=== PATIENT | male | born 1955 | race Caucasian/White ===

== ENCOUNTER 2020-01-02 19:36 | Observation (INO) ==
[2020-01-02 21:03] LABS: Basophils # 0.1 10*3/uL (0.0-0.2); Basophils % 0.7 % (0.0-0.8); Eosinophils # 0.3 10*3/uL (0.0-0.87); Hematocrit 39.8 VOL% (42.0-52.0); Hemoglobin 13.8 GM/DL (14.0-18.0); Immature Granulocytes % 0.2 %; Immature Granulocytes Absolute 0.02 #; Lymphocytes # 3.3 10*3/uL (1.4-4.0); Lymphocytes % 38.8 % (21.2-54.2); Mean Corpuscular HGB Conc 34.7 GM/DL (32-36); Mean Corpuscular Volume 100.8 FL (87-102); Mean Platelet Volume 10.2 FL (9.6-12.0); Monocytes % 15.4 % (1.7-12.7); Neutrophils % 40.9 % (38.7-73.9); Platelet Count 249 T/CUMM (130-400); Red Blood Count 3.95 MC/CUMM (3.8-5.5); Red Cell Distribution Width 13.1 % (9.3-17.3); White Blood Count 8.6 T/CUMM (4-12)
[2020-01-02] MEDS ORDERED: SODIUM CHLORIDE 0.9% 500 ML IV STA (21:13)
[2020-01-02] MEDS ORDERED: ALBUTEROL/IPRATROPIUM 3 ML NEB RESP TX STA (21:13)
[2020-01-02] MEDS ORDERED: methylPREDNISolone SOD SUC 125 MG/2 ML VIAL IV STA (21:13)
[2020-01-02 21:23] LABS: Alanine Aminotransferase 24 U/L (16-61); Albumin 3.2 G/DL (3.4-5.0); Alkaline Phosphatase 73 U/L (45-117); Aspartate Amino Transferase 11 U/L (0-37); Bilirubin,Total < 0.39 MG/DL (0.2-1.0); Blood Urea Nitrogen 6 MG/DL (7-18); Estimated Glom Filtration Rate 78 ML/MIN; Glucose 97 MG/DL (74-106); Osmolality,Calculated 267.1 MOS/KG (273-304); Total Protein 6.7 G/DL (6.4-8.3); Troponin I < 0.015 NG/ML (0.00-0.045)
[2020-01-02 21:35] LABS: PT Patient Result 10.3 SECS (9.8-11.9)
[2020-01-02 23:22] LABS: Apearance,Urine CLEAR (Clear); Bilirubin,Urine Negative (Negative); Blood, Urine Negative (Negative); Glucose,Urine (UA) Negative (Negative); Ketones,Urine Negative (Negative); Nitrite,Urine Negative (Negative); Protein,Urine Negative; Urine Color Yellow (Yellow); Urine Specific Gravity 1.004 (1.001-1.035); Urine Urobilinogen < 2.0 EU/DL (0.2-1.0); WBC,Urine <1 /HPF (0-6)
[2020-01-02] MEDS ORDERED: GLUCAGON 1 MG VIAL IM PRN (23:25)
[2020-01-02] MEDS ORDERED: ACETAMINOPHEN 325 MG TABLET PO PRN (23:25)
[2020-01-02] MEDS ORDERED: NICOTINE 21 MG/24 HR PATCH TRANSDERM PRN (23:25)
[2020-01-02] MEDS ORDERED: MORPHINE 4 MG/1 ML VIAL IV PRN (23:25)
[2020-01-02] MEDS ORDERED: guaiFENesin/DM ER 600-30 MG TABLET PO PRN (23:25)
[2020-01-02] MEDS ORDERED: DEXTROSE 50% 25 GM/50 ML VIAL IV PRN (23:25)
[2020-01-02] MEDS ORDERED: hydrALAZINE 20 MG/1 ML VIAL IV PRN (23:25)
[2020-01-02] MEDS ORDERED: ZALEPLON 5 MG CAPSULE PO PRN (23:25)
[2020-01-02] MEDS ORDERED: ONDANSETRON 4 MG/2 ML VIAL IV PRN (23:25)
[2020-01-02] MEDS ORDERED: diphenhydrAMINE CAP 25 MG CAPSULE PO PRN (23:25)
[2020-01-02 23:47] LABS: Barbiturates Screen,Urine Negative (Negative); Benzodiazepines Screen,Urine Negative (Negative); Cannabinoid Screen,Urine Negative (Negative); Opiate Screen,Urine Negative (Negative); Phencyclidine Screen,Urine Negative (Negative)
[2020-01-03 06:38] LABS: Basophils % 0.4 % (0.0-0.8); Hematocrit 40.8 VOL% (42.0-52.0); Hemoglobin 13.8 GM/DL (14.0-18.0); Immature Granulocytes % 0.2 %; Immature Granulocytes Absolute 0.01 #; Lymphocytes # 0.8 10*3/uL (1.4-4.0); Lymphocytes % 14.2 % (21.2-54.2); Mean Corpuscular HGB Conc 33.8 GM/DL (32-36); Mean Platelet Volume 10.9 FL (9.6-12.0); Monocytes % 1.5 % (1.7-12.7); Neutrophils % 83.7 % (38.7-73.9); Platelet Count 248 T/CUMM (130-400); Red Blood Count 4.08 MC/CUMM (3.8-5.5); White Blood Count 5.5 T/CUMM (4-12)
[2020-01-03] MEDS: ALBUTEROL/IPRATROPIUM 3 ML NEB RESP TX SCH ×3 (06:44→14:46)
[2020-01-03 06:49] LABS: ABG Base Excess -2.3 MMOL/L (-2.5-2.5); ABG HCO3 20.6 MMOL/L (20-26); ABG Oxygen Saturation 97.1 % (95-100); ABG PCO2 30.4 MM HG (35-48); ABG PH 7.448 (7.35-7.45); ABG PO2 87.5 MM HG (80-95); ABG TCO2 21.5 MMOL/L (23-27)
[2020-01-03 07:10] LABS: Albumin 3.1 G/DL (3.4-5.0); Bilirubin,Total 0.6 MG/DL (0.2-1.0); Osmolality,Calculated 272.1 MOS/KG (273-304); Thyroid Stimulating Hormone 0.306 uIU/ml (0.358-3.74); Total Protein 6.8 G/DL (6.4-8.3)
[2020-01-03] MEDS ORDERED: PANTOPRAZOLE 40 MG TABLET PO SCH (09:00)
[2020-01-03] MEDS ORDERED: ENOXAPARIN 40 MG/0.4 ML SYRINGE SUBCUT SCH (09:00)
[2020-01-03] MEDS ORDERED: ASPIRIN EC 325 MG TABLET PO SCH (12:30)
[2020-01-03 16:04] VITALS: BP 129/78
[2020-01-05] MEDS ORDERED: PNEUMOCOCCAL VACCINE (23 VALENT) 0.5 ML VIAL IM ONE (05:05)
== END 2020-01-03 16:33 | disposition home or self-care (01) ==
LOC: N.ED 19:36 → N.EDINP 19:36 → SUATTDRO 23:25 → N.TELEN 01-03 02:27
PROVIDERS: ADMIT Internal Medicine; ATTEND Hospitalist

== ENCOUNTER 2021-12-15 11:05 | Inpatient (IN) ==
[2021-12-15] MEDS ORDERED: DILTIAZEM 25 MG/5 ML VIAL IV ONE (11:21)
[2021-12-15] MEDS ORDERED: DILTIAZEM 100 MG VIAL.ADD IV ONE (11:21)
[2021-12-15] MEDS ORDERED: ADENOSINE 6 MG/2 ML VIAL ONE (11:34)
[2021-12-15] MEDS ORDERED: ADENOSINE 6 MG/2 ML VIAL IV STA (11:35)
[2021-12-15] MEDS ORDERED: DILTIAZEM 25 MG/5 ML VIAL IV STA (11:37)
[2021-12-15 12:00] LABS: Basophils # 0.1 10*3/uL (0.0-0.2); Basophils % 0.7 % (0.0-0.8); Eosinophils # 0.1 10*3/uL (0.0-0.87); Eosinophils % 1.4 % (0.00-10.9); Immature Granulocytes % 0.4 %; Immature Granulocytes Absolute 0.04 #; Lymphocytes # 1.7 10*3/uL (1.4-4.0); Lymphocytes % 18.1 % (21.2-54.2); Mean Corpuscular HGB Conc 32.6 GM/DL (32-36); Mean Corpuscular Volume 103.6 FL (87-102); Mean Platelet Volume 12.8 FL (9.6-12.0); Monocytes # 1.1 10*3/uL (0.11-0.8); Monocytes % 11.7 % (1.7-12.7); Neutrophils % 67.7 % (38.7-73.9); Platelet Count 242 T/CUMM (130-400); Red Blood Count 4.44 MC/CUMM (3.8-5.5); White Blood Count 9.3 T/CUMM (4-12)
[2021-12-15 12:15] LABS: Alanine Aminotransferase 57 U/L (16-61); Albumin 3.6 G/DL (3.4-5.0); Alkaline Phosphatase 123 U/L (45-117); Aspartate Amino Transferase 44 U/L (0-37); Blood Urea Nitrogen 14 MG/DL (7-18); Calcium 9.6 MG/DL (8.5-10.1); Carbon Dioxide 25 MMOL/L (21-32); Chloride 106 MMOL/L (98-107); Glucose 115 MG/DL (74-106); Osmolality,Calculated 274.8 MOS/KG (273-304); Potassium 5.1 MMOL/L (3.5-5.1); Sodium 137 MMOL/L (136-145); Total Protein 7.5 G/DL (6.4-8.2)
[2021-12-15] MEDS ORDERED: METOPROLOL TARTRATE 5 MG/5 ML VIAL IV ONE ×2 (13:40→13:46)
[2021-12-15] MEDS ORDERED: METOPROLOL TARTRATE 5 MG/5 ML VIAL IV STA ×3 (13:40→14:00)
[2021-12-15] MEDS ORDERED: GLUCAGON 1 MG VIAL IM PRN (15:04)
[2021-12-15] MEDS ORDERED: DEXTROSE 10% 250 ML BAG IV PRN (15:04)
[2021-12-15] MEDS ORDERED: ONDANSETRON 4 MG/2 ML VIAL IV PRN (15:04)
[2021-12-15] MEDS ORDERED: ACETAMINOPHEN 325 MG TABLET PO PRN (15:04)
[2021-12-15] MEDS ORDERED: FUROSEMIDE 40 MG/4 ML VIAL IV STA (15:09)
[2021-12-15] MEDS ORDERED: METOPROLOL TARTRATE 25 MG TABLET PO STA (15:10)
[2021-12-15] MEDS ORDERED: ASPIRIN EC 325 MG TABLET PO STA (15:14)
[2021-12-15 15:15] LABS: Arterial Base Excess iSTAT -5 MMOL/L (-2.5-2.5); Arterial O2 Saturation iSTAT 91 % (95-100); Arterial PCO2 iSTAT 37 MM HG (35-48); Arterial PO2 iSTAT 64 MM HG (80-95); Arterial Total CO2 iSTAT 21 MMO/L (23-27); Arterial pH iSTAT 7.343 (7.35-7.45)
[2021-12-15] MEDS ORDERED: ENOXAPARIN 40 MG/0.4 ML SYRINGE SUBCUT STA (15:16)
[2021-12-15] MEDS ORDERED: ALBUTEROL 2.5 MG/3 ML NEB RESP TX PRN (15:18)
[2021-12-15] MEDS ORDERED: ENOXAPARIN 150 MG/ML SYRINGE SUBCUT STA (15:18)
[2021-12-15] MEDS ORDERED: LORazepam 1 MG TABLET PO PRN (15:23)
[2021-12-15] MEDS ORDERED: NICOTINE 7 MG/24 HR PATCH TRANSDERM PRN (15:40)
[2021-12-15] MEDS ORDERED: DIAZEPAM 5 MG TABLET PO STA (15:57)
[2021-12-15] MEDS ORDERED: MORPHINE 2 MG/1 ML SYRINGE ONE (15:59)
[2021-12-15] MEDS ORDERED: MORPHINE 2 MG/1 ML SYRINGE IV ONE (16:02)
[2021-12-15] MEDS ORDERED: LACTATED RINGERS 250 ML IV ONE (16:13)
[2021-12-15] MEDS ORDERED: DIAZEPAM 10 MG/2 ML SYRINGE IM STA (16:35)
[2021-12-15] MEDS ORDERED: DIAZEPAM 5 MG TABLET PO PRN (17:13)
[2021-12-15] MEDS: PANTOPRAZOLE 40 MG VIAL IV SCH ×2 (17:20→20:14)
[2021-12-15] MEDS ORDERED: PHENYLEPHRINE DRIP 40 MG/250 ML PREMIX IV PRN (19:02)
[2021-12-15] MEDS: FLUTICASONE/SALMETEROL 250-50 DISKUS 14 DOSE INH SCH (20:12)
[2021-12-15] MEDS: GABAPENTIN 300 MG CAPSULE PO SCH (20:13)
[2021-12-15] MEDS: ASCORBIC ACID 500 MG TABLET PO SCH (20:13)
[2021-12-15] MEDS: FOLIC ACID 1 MG TABLET PO SCH (20:13)
[2021-12-15] MEDS: THIAMINE 100 MG TABLET PO SCH (20:13)
[2021-12-15] MEDS: CYANOCOBALAMIN 500 MCG TABLET PO SCH (20:13)
[2021-12-15] MEDS: FUROSEMIDE 40 MG/4 ML VIAL IV SCH (20:14)
[2021-12-15] MEDS ORDERED: METOPROLOL TARTRATE 25 MG TABLET PO SCH (21:00)
[2021-12-16] MEDS ORDERED: METOPROLOL TARTRATE 5 MG/5 ML VIAL IV ONE ×3 (01:11→11:58)
[2021-12-16] MEDS: ENOXAPARIN 150 MG/ML SYRINGE SUBCUT SCH ×2 (03:09→16:09)
[2021-12-16 06:26] LABS: Basophils # 0.1 10*3/uL (0.0-0.2); Basophils % 0.5 % (0.0-0.8); Eosinophils # 0.1 10*3/uL (0.0-0.87); Eosinophils % 0.8 % (0.00-10.9); Hematocrit 41.2 VOL% (42.0-52.0); Hemoglobin 13.6 GM/DL (14.0-18.0); Immature Granulocytes % 0.5 %; Immature Granulocytes Absolute 0.05 #; Lymphocytes # 1.9 10*3/uL (1.4-4.0); Lymphocytes % 19.3 % (21.2-54.2); Mean Corpuscular Volume 102.2 FL (87-102); Mean Platelet Volume 12.8 FL (9.6-12.0); Monocytes # 1.3 10*3/uL (0.11-0.8); Monocytes % 13.3 % (1.7-12.7); NRBC # 0.03 10*3/uL; Neutrophils % 65.6 % (38.7-73.9); Platelet Count 227 T/CUMM (130-400); Red Blood Count 4.03 MC/CUMM (3.8-5.5); Red Cell Distribution Width 15.1 % (9.3-17.3); White Blood Count 9.6 T/CUMM (4-12)
[2021-12-16 06:50] LABS: Risk Ratio 3.32; VLDL Cholesterol 14.6 MG/DL
[2021-12-16 06:56] LABS: Calcium 8.8 MG/DL (8.5-10.1); Osmolality,Calculated 273.1 MOS/KG (273-304); Potassium 4.6 MMOL/L (3.5-5.1)
[2021-12-16 07:05] LABS: Albumin 3.1 G/DL (3.4-5.0); Bilirubin,Total 1.5 MG/DL (0.20-1.00); Calcium 8.8 MG/DL (8.5-10.1); Potassium 5.1 MMOL/L (3.5-5.1); Total Protein 6.4 G/DL (6.4-8.2)
[2021-12-16] MEDS ORDERED: AMIODARONE INJ 150 MG in DEXTROSE 5% 100 ML IV ONE ×2 (08:06→09:00)
[2021-12-16 08:27] LABS: Risk Ratio 3.27; VLDL Cholesterol 14.2 MG/DL
[2021-12-16] MEDS ORDERED: AMIODARONE INJ 450 MG in DEXTROSE 5% 241 ML IV SCH (08:30)
[2021-12-16] MEDS ORDERED: METOPROLOL TARTRATE 25 MG TABLET PO SCH (09:00)
[2021-12-16] MEDS: FUROSEMIDE 40 MG/4 ML VIAL IV SCH ×2 (09:03→20:23)
[2021-12-16] MEDS: ASPIRIN EC 81 MG TABLET PO SCH (09:03)
[2021-12-16] MEDS: FOLIC ACID 1 MG TABLET PO SCH ×2 (09:03→20:22)
[2021-12-16] MEDS: GABAPENTIN 300 MG CAPSULE PO SCH ×3 (09:04→20:22)
[2021-12-16] MEDS: PANTOPRAZOLE 40 MG VIAL IV SCH ×2 (09:04→20:23)
[2021-12-16] MEDS: THIAMINE 100 MG TABLET PO SCH ×2 (09:04→20:22)
[2021-12-16] MEDS: CYANOCOBALAMIN 500 MCG TABLET PO SCH ×2 (09:05→20:22)
[2021-12-16] MEDS: oxyCODONE/ACETAMINOPHEN 5-325 MG TABLET PO PRN (09:05)
[2021-12-16] MEDS: ASCORBIC ACID 500 MG TABLET PO SCH ×2 (09:05→20:22)
[2021-12-16] MEDS ORDERED: MORPHINE 2 MG/1 ML SYRINGE ONE (09:43)
[2021-12-16] MEDS: MORPHINE 2 MG/1 ML SYRINGE IV PRN ×2 (09:50→12:42)
[2021-12-16] MEDS ORDERED: METOPROLOL TARTRATE 5 MG/5 ML VIAL IV SCH (12:00)
[2021-12-16] MEDS ORDERED: DIGOXIN 0.5 MG/2 ML AMP IV ONE ×2 (12:21→12:30)
[2021-12-16] MEDS ORDERED: DIAZEPAM 10 MG/2 ML SYRINGE IV ONE (12:28)
[2021-12-16] MEDS ORDERED: DIAZEPAM 10 MG/2 ML SYRINGE ONE (12:30)
[2021-12-16] MEDS ORDERED: ALUM/MAG/SIMETH/LIDO VISC 1:1 30 ML BOTTLE PO ONE (13:18)
[2021-12-16] MEDS: FLUTICASONE/SALMETEROL 250-50 DISKUS 14 DOSE INH SCH ×2 (13:39→20:22)
[2021-12-16] MEDS: DIAZEPAM 5 MG TABLET PO SCH ×2 (16:12→20:22)
[2021-12-16] MEDS: AMIODARONE INJ 450 MG in DEXTROSE 5% 241 ML IV SCH (17:50)
[2021-12-16] MEDS: carvediloL 3.125 MG TABLET PO SCH (18:52)
[2021-12-16 19:27] LABS: Barbiturates Screen,Urine Negative (Negative); Benzodiazepines Screen,Urine Negative (Negative); Cannabinoid Screen,Urine Negative (Negative); Opiate Screen,Urine Positive (Negative); Phencyclidine Screen,Urine Negative (Negative)
[2021-12-17 01:19] LABS: Basophils # 0.1 10*3/uL (0.0-0.2); Basophils % 0.9 % (0.0-0.8); Eosinophils # 0.4 10*3/uL (0.0-0.87); Eosinophils % 2.7 % (0.00-10.9); Hematocrit 43.4 VOL% (42.0-52.0); Hemoglobin 13.9 GM/DL (14.0-18.0); Immature Granulocytes % 0.5 %; Immature Granulocytes Absolute 0.06 #; Lymphocytes # 2.3 10*3/uL (1.4-4.0); Lymphocytes % 18.3 % (21.2-54.2); Mean Corpuscular Volume 104.6 FL (87-102); Mean Platelet Volume 12.1 FL (9.6-12.0); Monocytes # 2.2 10*3/uL (0.11-0.8); NRBC # 0.08 10*3/uL; Neutrophils % 60.6 % (38.7-73.9); Platelet Count 227 T/CUMM (130-400); Red Blood Count 4.15 MC/CUMM (3.8-5.5); Red Cell Distribution Width 15.1 % (9.3-17.3); White Blood Count 12.8 T/CUMM (4-12)
[2021-12-17 01:40] LABS: Eosinophils 4 % (0-10); Lymphocytes 17 % (20-55); Macrocytosis 1+; Platelet Estimate Adequate; Total Cells Counted 100
[2021-12-17 01:43] LABS: Calcium 8.4 MG/DL (8.5-10.1); Osmolality,Calculated 270.4 MOS/KG (273-304); Potassium 3.8 MMOL/L (3.5-5.1)
[2021-12-17] MEDS: AMIODARONE INJ 450 MG in DEXTROSE 5% 241 ML IV SCH ×2 (04:08→05:23)
[2021-12-17] MEDS: ENOXAPARIN 150 MG/ML SYRINGE SUBCUT SCH ×2 (04:08→15:08)
[2021-12-17] MEDS: FUROSEMIDE 40 MG/4 ML VIAL IV SCH ×2 (09:39→20:06)
[2021-12-17] MEDS: PANTOPRAZOLE 40 MG VIAL IV SCH ×2 (09:39→20:05)
[2021-12-17] MEDS: FLUTICASONE/SALMETEROL 250-50 DISKUS 14 DOSE INH SCH ×2 (09:39→20:04)
[2021-12-17] MEDS ORDERED: EPINEPHrine 1 MG/ML VIAL ONE (10:51)
[2021-12-17] MEDS ORDERED: propofoL 200 MG/20 ML VIAL IV ONE (10:52)
[2021-12-17] MEDS ORDERED: LIDOCAINE 1% 5 ML VIAL ONE (10:53)
[2021-12-17] MEDS ORDERED: ETOMIDATE 40 MG/20 ML VIAL IV ONE (10:53)
[2021-12-17] MEDS: DAPAGLIFLOZIN 10 MG TABLET PO SCH (11:31)
[2021-12-17] MEDS: ASCORBIC ACID 500 MG TABLET PO SCH ×2 (11:32→20:04)
[2021-12-17] MEDS: GABAPENTIN 300 MG CAPSULE PO SCH ×3 (11:32→20:04)
[2021-12-17] MEDS: FOLIC ACID 1 MG TABLET PO SCH ×2 (11:32→20:05)
[2021-12-17] MEDS: carvediloL 3.125 MG TABLET PO SCH ×2 (11:32→20:05)
[2021-12-17] MEDS: AMIODARONE 200 MG TABLET PO SCH ×2 (11:33→20:04)
[2021-12-17] MEDS: ASPIRIN EC 81 MG TABLET PO SCH (11:33)
[2021-12-17] MEDS: CYANOCOBALAMIN 500 MCG TABLET PO SCH ×2 (11:33→20:05)
[2021-12-17] MEDS: THIAMINE 100 MG TABLET PO SCH ×2 (11:33→20:06)
[2021-12-17] MEDS: DIAZEPAM 5 MG TABLET PO SCH ×3 (11:34→20:05)
[2021-12-18] MEDS: ENOXAPARIN 150 MG/ML SYRINGE SUBCUT SCH ×2 (03:37→14:47)
[2021-12-18 03:56] LABS: Basophils # 0.1 10*3/uL (0.0-0.2); Basophils % 0.8 % (0.0-0.8); Eosinophils # 0.4 10*3/uL (0.0-0.87); Eosinophils % 4.8 % (0.00-10.9); Hematocrit 42.1 VOL% (42.0-52.0); Hemoglobin 13.8 GM/DL (14.0-18.0); Immature Granulocytes % 0.3 %; Immature Granulocytes Absolute 0.02 #; Lymphocytes # 1.4 10*3/uL (1.4-4.0); Lymphocytes % 18.9 % (21.2-54.2); Mean Corpuscular HGB Conc 32.8 GM/DL (32-36); Mean Corpuscular Volume 101.9 FL (87-102); Mean Platelet Volume 11.9 FL (9.6-12.0); Monocytes # 1.1 10*3/uL (0.11-0.8); Monocytes % 15.5 % (1.7-12.7); NRBC # 0.05 10*3/uL; Neutrophils % 59.7 % (38.7-73.9); Platelet Count 261 T/CUMM (130-400); Red Blood Count 4.13 MC/CUMM (3.8-5.5); Red Cell Distribution Width 14.9 % (9.3-17.3); White Blood Count 7.4 T/CUMM (4-12)
[2021-12-18 04:18] LABS: Albumin 2.8 G/DL (3.4-5.0); Bilirubin,Direct 0.47 MG/DL (0.0-0.20); Bilirubin,Indirect 0.4 MG/DL (0.0-1.0); Bilirubin,Total 0.9 MG/DL (0.20-1.00); Calcium 8.5 MG/DL (8.5-10.1); Osmolality,Calculated 274.8 MOS/KG (273-304); Total Protein 6.9 G/DL (6.4-8.2)
[2021-12-18] MEDS: ASPIRIN EC 81 MG TABLET PO SCH (09:09)
[2021-12-18] MEDS: ASCORBIC ACID 500 MG TABLET PO SCH ×2 (09:09→20:05)
[2021-12-18] MEDS: CYANOCOBALAMIN 500 MCG TABLET PO SCH ×2 (09:10→20:05)
[2021-12-18] MEDS: FOLIC ACID 1 MG TABLET PO SCH ×2 (09:10→20:05)
[2021-12-18] MEDS: AMIODARONE 200 MG TABLET PO SCH ×2 (09:10→20:05)
[2021-12-18] MEDS: POTASSIUM CHLORIDE 20 MEQ TABLET PO PRN ×5 (09:11→22:30)
[2021-12-18] MEDS: DIAZEPAM 5 MG TABLET PO SCH ×3 (09:11→20:04)
[2021-12-18] MEDS: carvediloL 3.125 MG TABLET PO SCH ×2 (09:11→17:26)
[2021-12-18] MEDS: DAPAGLIFLOZIN 10 MG TABLET PO SCH (09:12)
[2021-12-18] MEDS: THIAMINE 100 MG TABLET PO SCH ×2 (09:12→20:05)
[2021-12-18] MEDS: FLUTICASONE/SALMETEROL 250-50 DISKUS 14 DOSE INH SCH ×2 (09:14→20:04)
[2021-12-18] MEDS: GABAPENTIN 300 MG CAPSULE PO SCH ×3 (09:14→20:04)
[2021-12-18] MEDS: FUROSEMIDE 40 MG/4 ML VIAL IV SCH ×2 (09:14→20:03)
[2021-12-18 09:16] LABS: Hepatitis B Core IgM Quant 0.25 Index; Hepatitis B Surface Ag Quant < 0.10 Index; Hepatitis B Surface Ag Result Non-Reactive (NonReactive); Hepatitis C Virus Ab Quant 0.03 Index; Hepatitis C Virus Ab Result Non-Reactive (NonReactive)
[2021-12-18] MEDS: oxyCODONE/ACETAMINOPHEN 5-325 MG TABLET PO PRN (17:26)
[2021-12-18] MEDS ORDERED: PANTOPRAZOLE 40 MG TABLET PO SCH (19:00)
[2021-12-18] MEDS: MORPHINE 2 MG/1 ML SYRINGE IV PRN (20:04)
[2021-12-18] MEDS: METOPROLOL TARTRATE 5 MG/5 ML VIAL IV PRN (21:54)
[2021-12-19] MEDS: ENOXAPARIN 150 MG/ML SYRINGE SUBCUT SCH ×2 (03:43→15:48)
[2021-12-19] MEDS: METOPROLOL TARTRATE 5 MG/5 ML VIAL IV PRN ×3 (03:46→23:12)
[2021-12-19 05:30] LABS: Basophils # 0.1 10*3/uL (0.0-0.2); Basophils % 0.8 % (0.0-0.8); Eosinophils # 0.3 10*3/uL (0.0-0.87); Eosinophils % 4.2 % (0.00-10.9); Hematocrit 43.3 VOL% (42.0-52.0); Hemoglobin 13.8 GM/DL (14.0-18.0); Immature Granulocytes % 0.4 %; Immature Granulocytes Absolute 0.03 #; Lymphocytes # 1.6 10*3/uL (1.4-4.0); Lymphocytes % 21.1 % (21.2-54.2); Mean Corpuscular HGB Conc 31.9 GM/DL (32-36); Mean Corpuscular Volume 104.1 FL (87-102); Mean Platelet Volume 12.5 FL (9.6-12.0); Monocytes # 1.3 10*3/uL (0.11-0.8); Monocytes % 18.1 % (1.7-12.7); Neutrophils % 55.4 % (38.7-73.9); Platelet Count 255 T/CUMM (130-400); Red Blood Count 4.16 MC/CUMM (3.8-5.5); Red Cell Distribution Width 15.4 % (9.3-17.3); White Blood Count 7.4 T/CUMM (4-12)
[2021-12-19 05:54] LABS: Calcium 8.6 MG/DL (8.5-10.1); Osmolality,Calculated 276.5 MOS/KG (273-304); Potassium 3.6 MMOL/L (3.5-5.1)
[2021-12-19] MEDS: POTASSIUM CHLORIDE 20 MEQ TABLET PO PRN (06:50)
[2021-12-19 07:42] LABS: Eosinophils 6 % (0-10); Lymphocytes 25 % (20-55); Nucleated Red Blood Cells 1 /100 WBC (0-5); Total Cells Counted 100
[2021-12-19 07:43] LABS: Macrocytosis Slight; Platelet Estimate Normal
[2021-12-19] MEDS: PANTOPRAZOLE 40 MG TABLET PO SCH ×2 (08:12→21:46)
[2021-12-19] MEDS: CYANOCOBALAMIN 500 MCG TABLET PO SCH ×2 (08:12→21:46)
[2021-12-19] MEDS: DIAZEPAM 5 MG TABLET PO SCH ×3 (08:12→21:46)
[2021-12-19] MEDS: GABAPENTIN 300 MG CAPSULE PO SCH ×3 (08:12→21:46)
[2021-12-19] MEDS: DAPAGLIFLOZIN 10 MG TABLET PO SCH (08:12)
[2021-12-19] MEDS: ASCORBIC ACID 500 MG TABLET PO SCH ×2 (08:12→21:46)
[2021-12-19] MEDS: FLUTICASONE/SALMETEROL 250-50 DISKUS 14 DOSE INH SCH ×2 (08:13→21:45)
[2021-12-19] MEDS: FOLIC ACID 1 MG TABLET PO SCH ×2 (08:13→21:47)
[2021-12-19] MEDS: AMIODARONE 200 MG TABLET PO SCH ×2 (08:13→21:46)
[2021-12-19] MEDS: carvediloL 3.125 MG TABLET PO SCH ×2 (08:13→17:24)
[2021-12-19] MEDS: THIAMINE 100 MG TABLET PO SCH ×2 (08:13→21:46)
[2021-12-19] MEDS: ASPIRIN EC 81 MG TABLET PO SCH (08:15)
[2021-12-19] MEDS: FUROSEMIDE 40 MG/4 ML VIAL IV SCH ×2 (08:15→21:47)
[2021-12-19] MEDS: ALBUTEROL/IPRATROPIUM 3 ML NEB RESP TX SCH ×2 (13:32→19:10)
[2021-12-19] MEDS: ALUM/MAG/SIMETH/LIDO VISC 1:1 30 ML BOTTLE PO SCH (15:48)
[2021-12-19] MEDS: predniSONE 20 MG TABLET PO SCH ×2 (15:48→21:47)
[2021-12-19] MEDS ORDERED: FUROSEMIDE 20 MG/2 ML VIAL IV ONE (17:58)
[2021-12-19] MEDS: DOXYCYCLINE HYCLATE 100 MG CAPSULE PO SCH (21:47)
[2021-12-19] MEDS: oxyCODONE/ACETAMINOPHEN 5-325 MG TABLET PO PRN (21:51)
[2021-12-20] MEDS: ALBUTEROL/IPRATROPIUM 3 ML NEB RESP TX SCH ×4 (00:10→19:35)
[2021-12-20] MEDS: ENOXAPARIN 150 MG/ML SYRINGE SUBCUT SCH (02:47)
[2021-12-20 05:26] LABS: Basophils % 0.1 % (0.0-0.8); Hematocrit 41.8 VOL% (42.0-52.0); Hemoglobin 13.4 GM/DL (14.0-18.0); Immature Granulocytes % 0.4 %; Immature Granulocytes Absolute 0.03 #; Lymphocytes # 0.7 10*3/uL (1.4-4.0); Lymphocytes % 8.2 % (21.2-54.2); Mean Corpuscular HGB Conc 32.1 GM/DL (32-36); Mean Corpuscular Volume 103.7 FL (87-102); Mean Platelet Volume 11.9 FL (9.6-12.0); Monocytes % 11.8 % (1.7-12.7); Neutrophils % 79.5 % (38.7-73.9); Platelet Count 257 T/CUMM (130-400); Red Blood Count 4.03 MC/CUMM (3.8-5.5); Red Cell Distribution Width 15.2 % (9.3-17.3); White Blood Count 8.2 T/CUMM (4-12)
[2021-12-20 05:44] LABS: Calcium 8.7 MG/DL (8.5-10.1); Osmolality,Calculated 284.1 MOS/KG (273-304); Potassium 3.9 MMOL/L (3.5-5.1)
[2021-12-20] MEDS: DAPAGLIFLOZIN 10 MG TABLET PO SCH (08:33)
[2021-12-20] MEDS: ASCORBIC ACID 500 MG TABLET PO SCH ×2 (08:34→22:09)
[2021-12-20] MEDS: FOLIC ACID 1 MG TABLET PO SCH ×2 (08:34→22:11)
[2021-12-20] MEDS: ASPIRIN EC 81 MG TABLET PO SCH (08:34)
[2021-12-20] MEDS: carvediloL 3.125 MG TABLET PO SCH (08:35)
[2021-12-20] MEDS: CYANOCOBALAMIN 500 MCG TABLET PO SCH ×2 (08:35→22:10)
[2021-12-20] MEDS: THIAMINE 100 MG TABLET PO SCH ×2 (08:35→22:10)
[2021-12-20] MEDS: AMIODARONE 200 MG TABLET PO SCH ×2 (08:35→22:09)
[2021-12-20] MEDS: PANTOPRAZOLE 40 MG TABLET PO SCH ×2 (08:35→22:11)
[2021-12-20] MEDS: DOXYCYCLINE HYCLATE 100 MG CAPSULE PO SCH ×2 (08:35→22:10)
[2021-12-20] MEDS: ALUM/MAG/SIMETH/LIDO VISC 1:1 30 ML BOTTLE PO SCH (08:36)
[2021-12-20] MEDS: GABAPENTIN 300 MG CAPSULE PO SCH ×3 (08:36→22:09)
[2021-12-20] MEDS: DIAZEPAM 5 MG TABLET PO SCH ×3 (08:36→22:11)
[2021-12-20] MEDS: predniSONE 20 MG TABLET PO SCH ×2 (08:36→22:11)
[2021-12-20] MEDS: FUROSEMIDE 40 MG/4 ML VIAL IV SCH ×2 (08:37→22:11)
[2021-12-20] MEDS: FLUTICASONE/SALMETEROL 250-50 DISKUS 14 DOSE INH SCH ×2 (08:37→22:12)
[2021-12-20] MEDS: POTASSIUM CHLORIDE 20 MEQ TABLET PO PRN (10:21)
[2021-12-20] MEDS: oxyCODONE/ACETAMINOPHEN 5-325 MG TABLET PO PRN ×2 (10:22→22:10)
[2021-12-20] MEDS: METOPROLOL TARTRATE 5 MG/5 ML VIAL IV PRN (12:09)
[2021-12-20] MEDS: carvediloL 12.5 MG TABLET PO SCH (16:33)
[2021-12-20] MEDS: ROSUVASTATIN 10 MG TABLET PO SCH (22:09)
[2021-12-20] MEDS: APIXABAN 5 MG TABLET PO SCH (22:11)
[2021-12-21] MEDS: ALBUTEROL/IPRATROPIUM 3 ML NEB RESP TX SCH ×4 (00:23→19:10)
[2021-12-21] MEDS: METOPROLOL TARTRATE 5 MG/5 ML VIAL IV PRN (07:36)
[2021-12-21] MEDS ORDERED: DIGOXIN 0.5 MG/2 ML AMP IV ONE ×2 (08:23→17:10)
[2021-12-21] MEDS: ALUM/MAG/SIMETH/LIDO VISC 1:1 30 ML BOTTLE PO SCH (08:51)
[2021-12-21] MEDS: FLUTICASONE/SALMETEROL 250-50 DISKUS 14 DOSE INH SCH ×2 (08:53→21:00)
[2021-12-21] MEDS: AMIODARONE 200 MG TABLET PO SCH ×2 (08:54→20:59)
[2021-12-21] MEDS: CYANOCOBALAMIN 500 MCG TABLET PO SCH ×2 (08:54→21:00)
[2021-12-21] MEDS: DAPAGLIFLOZIN 10 MG TABLET PO SCH (08:54)
[2021-12-21] MEDS: PANTOPRAZOLE 40 MG TABLET PO SCH ×2 (08:54→21:00)
[2021-12-21] MEDS: ASCORBIC ACID 500 MG TABLET PO SCH ×2 (08:54→20:59)
[2021-12-21] MEDS: APIXABAN 5 MG TABLET PO SCH (08:54)
[2021-12-21] MEDS: carvediloL 25 MG TABLET PO SCH ×2 (08:55→20:59)
[2021-12-21] MEDS: predniSONE 20 MG TABLET PO SCH ×2 (08:55→20:59)
[2021-12-21] MEDS: FUROSEMIDE 40 MG/4 ML VIAL IV SCH ×2 (08:55→21:00)
[2021-12-21] MEDS: FOLIC ACID 1 MG TABLET PO SCH ×2 (08:55→20:59)
[2021-12-21] MEDS: GABAPENTIN 300 MG CAPSULE PO SCH ×3 (08:55→21:00)
[2021-12-21] MEDS: ASPIRIN EC 81 MG TABLET PO SCH (08:55)
[2021-12-21] MEDS: THIAMINE 100 MG TABLET PO SCH ×2 (08:56→20:59)
[2021-12-21] MEDS: DOXYCYCLINE HYCLATE 100 MG CAPSULE PO SCH ×2 (08:56→20:59)
[2021-12-21] MEDS: DIAZEPAM 5 MG TABLET PO SCH ×3 (08:56→20:59)
[2021-12-21] MEDS ORDERED: LOSARTAN 25 MG TABLET PO SCH (09:00)
[2021-12-21 09:15] LABS: Calcium 9.2 MG/DL (8.5-10.1); Osmolality,Calculated 273.1 MOS/KG (273-304); Potassium 4.4 MMOL/L (3.5-5.1)
[2021-12-21] MEDS: carvediloL 12.5 MG TABLET PO SCH (09:33)
[2021-12-21] MEDS ORDERED: METOPROLOL TARTRATE 5 MG/5 ML VIAL IV ONE (09:44)
[2021-12-21] MEDS ORDERED: BISACODYL 5 MG TABLET PO ONE (09:56)
[2021-12-21] MEDS ORDERED: BISACODYL 5 MG TABLET PO PRN (13:55)
[2021-12-21] MEDS: POLYETHYLENE GLYCOL POWDER 17 GM PACK PO SCH (14:08)
[2021-12-21] MEDS: CETIRIZINE 10 MG TABLET PO SCH (18:25)
[2021-12-21] MEDS: ROSUVASTATIN 10 MG TABLET PO SCH (21:00)
[2021-12-21] MEDS: MORPHINE 2 MG/1 ML SYRINGE IV PRN (21:09)
[2021-12-22] MEDS: ALBUTEROL/IPRATROPIUM 3 ML NEB RESP TX SCH ×4 (00:58→19:03)
[2021-12-22 05:27] LABS: Basophils % 0.1 % (0.0-0.8); Eosinophils % 0.3 % (0.00-10.9); Hematocrit 40.7 VOL% (42.0-52.0); Immature Granulocytes % 0.4 %; Immature Granulocytes Absolute 0.04 #; Lymphocytes % 10.5 % (21.2-54.2); Mean Corpuscular HGB Conc 31.9 GM/DL (32-36); Mean Corpuscular Volume 103.8 FL (87-102); Mean Platelet Volume 11.9 FL (9.6-12.0); Monocytes # 1.3 10*3/uL (0.11-0.8); Monocytes % 13.2 % (1.7-12.7); Neutrophils % 75.5 % (38.7-73.9); Platelet Count 270 T/CUMM (130-400); Red Blood Count 3.92 MC/CUMM (3.8-5.5); Red Cell Distribution Width 15.3 % (9.3-17.3); White Blood Count 9.7 T/CUMM (4-12)
[2021-12-22 05:50] LABS: Albumin 2.8 G/DL (3.4-5.0); Bilirubin,Direct 0.25 MG/DL (0.0-0.20); Bilirubin,Indirect 0.3 MG/DL (0.0-1.0); Bilirubin,Total 0.5 MG/DL (0.20-1.00); Calcium 8.8 MG/DL (8.5-10.1); Osmolality,Calculated 285.3 MOS/KG (273-304); Potassium 3.5 MMOL/L (3.5-5.1); Total Protein 6.6 G/DL (6.4-8.2)
[2021-12-22] MEDS: AMIODARONE 200 MG TABLET PO SCH ×2 (09:52→21:49)
[2021-12-22] MEDS: ALUM/MAG/SIMETH/LIDO VISC 1:1 30 ML BOTTLE PO SCH (09:52)
[2021-12-22] MEDS: carvediloL 25 MG TABLET PO SCH ×2 (09:52→21:50)
[2021-12-22] MEDS: ASPIRIN EC 81 MG TABLET PO SCH (09:52)
[2021-12-22] MEDS: FLUTICASONE/SALMETEROL 250-50 DISKUS 14 DOSE INH SCH ×2 (09:52→21:50)
[2021-12-22] MEDS: FOLIC ACID 1 MG TABLET PO SCH ×2 (09:53→21:50)
[2021-12-22] MEDS: POLYETHYLENE GLYCOL POWDER 17 GM PACK PO SCH (09:53)
[2021-12-22] MEDS: SACUBITRIL/VALSARTAN 49-51 MG TABLET PO SCH ×2 (09:53→21:49)
[2021-12-22] MEDS: PANTOPRAZOLE 40 MG TABLET PO SCH ×2 (09:53→21:49)
[2021-12-22] MEDS: THIAMINE 100 MG TABLET PO SCH ×2 (09:53→21:50)
[2021-12-22] MEDS: predniSONE 20 MG TABLET PO SCH ×2 (09:53→21:49)
[2021-12-22] MEDS: DOXYCYCLINE HYCLATE 100 MG CAPSULE PO SCH ×2 (09:53→21:49)
[2021-12-22] MEDS: FUROSEMIDE 40 MG/4 ML VIAL IV SCH ×2 (09:53→21:50)
[2021-12-22] MEDS: DAPAGLIFLOZIN 10 MG TABLET PO SCH (09:53)
[2021-12-22] MEDS: GABAPENTIN 300 MG CAPSULE PO SCH ×3 (09:53→21:49)
[2021-12-22] MEDS: CYANOCOBALAMIN 500 MCG TABLET PO SCH ×2 (09:53→21:49)
[2021-12-22] MEDS: DIAZEPAM 5 MG TABLET PO SCH ×3 (09:53→21:49)
[2021-12-22] MEDS: ASCORBIC ACID 500 MG TABLET PO SCH ×2 (09:54→21:50)
[2021-12-22] MEDS ORDERED: DIGOXIN 0.5 MG/2 ML AMP IV ONE (12:27)
[2021-12-22] MEDS ORDERED: POTASSIUM CHLORIDE RIDER 10 MEQ/100 ML PREMIX IV PRN (12:28)
[2021-12-22] MEDS ORDERED: MAGNESIUM SULF RIDER 2 GM/50 ML PREMIX IV PRN (12:28)
[2021-12-22] MEDS ORDERED: POTASSIUM CHLORIDE 20 MEQ TABLET PO ONE (13:53)
[2021-12-22] MEDS: DILTIAZEM 30 MG TABLET PO SCH ×2 (13:53→17:59)
[2021-12-22] MEDS ORDERED: DIGOXIN 0.125 MG TABLET PO ONE (13:54)
[2021-12-22] MEDS ORDERED: BENZONATATE 100 MG CAPSULE PO PRN (13:56)
[2021-12-22] MEDS ORDERED: BENZONATATE 100 MG CAPSULE PO ONE (13:56)
[2021-12-22] MEDS: ROSUVASTATIN 20 MG TABLET PO SCH (21:50)
[2021-12-22] MEDS: CETIRIZINE 10 MG TABLET PO SCH (21:50)
[2021-12-23] MEDS: DILTIAZEM 30 MG TABLET PO SCH ×4 (00:25→17:02)
[2021-12-23] MEDS: ALBUTEROL/IPRATROPIUM 3 ML NEB RESP TX SCH ×4 (00:43→19:47)
[2021-12-23 06:15] LABS: Basophils % 0.1 % (0.0-0.8); Eosinophils % 0.1 % (0.00-10.9); Hematocrit 43.2 VOL% (42.0-52.0); Hemoglobin 13.8 GM/DL (14.0-18.0); Immature Granulocytes % 0.5 %; Immature Granulocytes Absolute 0.05 #; Lymphocytes # 0.8 10*3/uL (1.4-4.0); Lymphocytes % 7.5 % (21.2-54.2); Mean Corpuscular HGB Conc 31.9 GM/DL (32-36); Mean Corpuscular Volume 103.8 FL (87-102); Mean Platelet Volume 11.9 FL (9.6-12.0); Monocytes # 1.4 10*3/uL (0.11-0.8); Monocytes % 13.4 % (1.7-12.7); Neutrophils % 78.4 % (38.7-73.9); Platelet Count 299 T/CUMM (130-400); Red Blood Count 4.16 MC/CUMM (3.8-5.5); Red Cell Distribution Width 15.1 % (9.3-17.3); White Blood Count 10.6 T/CUMM (4-12)
[2021-12-23 06:36] LABS: Calcium 8.7 MG/DL (8.5-10.1); Osmolality,Calculated 283.3 MOS/KG (273-304); Potassium 3.8 MMOL/L (3.5-5.1)
[2021-12-23] MEDS: ALUM/MAG/SIMETH/LIDO VISC 1:1 30 ML BOTTLE PO SCH (08:59)
[2021-12-23] MEDS: SACUBITRIL/VALSARTAN 49-51 MG TABLET PO SCH ×2 (08:59→21:41)
[2021-12-23] MEDS: AMIODARONE 200 MG TABLET PO SCH ×2 (08:59→21:42)
[2021-12-23] MEDS: carvediloL 25 MG TABLET PO SCH ×2 (08:59→21:42)
[2021-12-23] MEDS: FUROSEMIDE 40 MG/4 ML VIAL IV SCH ×2 (09:00→21:41)
[2021-12-23] MEDS: FOLIC ACID 1 MG TABLET PO SCH ×2 (09:00→21:43)
[2021-12-23] MEDS: DAPAGLIFLOZIN 10 MG TABLET PO SCH (09:00)
[2021-12-23] MEDS: GABAPENTIN 300 MG CAPSULE PO SCH ×3 (09:01→21:42)
[2021-12-23] MEDS: predniSONE 20 MG TABLET PO SCH ×2 (09:01→21:42)
[2021-12-23] MEDS: POLYETHYLENE GLYCOL POWDER 17 GM PACK PO SCH (09:01)
[2021-12-23] MEDS: PANTOPRAZOLE 40 MG TABLET PO SCH ×2 (09:01→21:42)
[2021-12-23] MEDS: DIAZEPAM 5 MG TABLET PO SCH ×3 (09:02→21:42)
[2021-12-23] MEDS: ASCORBIC ACID 500 MG TABLET PO SCH ×2 (09:02→21:41)
[2021-12-23] MEDS: THIAMINE 100 MG TABLET PO SCH ×2 (09:02→21:41)
[2021-12-23] MEDS: DOXYCYCLINE HYCLATE 100 MG CAPSULE PO SCH ×2 (09:02→21:42)
[2021-12-23] MEDS: CYANOCOBALAMIN 500 MCG TABLET PO SCH ×2 (09:02→21:42)
[2021-12-23] MEDS: POTASSIUM CHLORIDE 20 MEQ TABLET PO PRN (09:13)
[2021-12-23] MEDS: ASPIRIN EC 81 MG TABLET PO SCH (09:13)
[2021-12-23] MEDS: FLUTICASONE/SALMETEROL 250-50 DISKUS 14 DOSE INH SCH ×2 (09:14→21:43)
[2021-12-23] MEDS ORDERED: SODIUM CHLORIDE 0.9% 1,000 ML IV SCH (12:30)
[2021-12-23] MEDS ORDERED: HEPARIN/NACL 0.9% 2 UNITS/ML 0 UNIT/0 ML BAG IV ONE (12:58)
[2021-12-23] MEDS: DIGOXIN 0.125 MG TABLET PO SCH (13:14)
[2021-12-23] MEDS ORDERED: diphenhydrAMINE CAP 50 MG CAPSULE PO ONE (13:30)
[2021-12-23] MEDS ORDERED: DIAZEPAM 5 MG TABLET PO ONE (13:30)
[2021-12-23] MEDS: CETIRIZINE 10 MG TABLET PO SCH ×2 (17:02→18:12)
[2021-12-23] MEDS ORDERED: traZODone 50 MG TABLET PO PRN (21:00)
[2021-12-23] MEDS: ROSUVASTATIN 20 MG TABLET PO SCH (21:41)
[2021-12-23] MEDS: MORPHINE 2 MG/1 ML SYRINGE IV PRN (21:41)
[2021-12-24] MEDS: ALBUTEROL/IPRATROPIUM 3 ML NEB RESP TX SCH ×4 (01:00→19:35)
[2021-12-24] MEDS: DILTIAZEM 30 MG TABLET PO SCH ×2 (01:38→06:41)
[2021-12-24 05:19] LABS: Basophils % 0.1 % (0.0-0.8); Eosinophils % 0.4 % (0.00-10.9); Hematocrit 46.8 VOL% (42.0-52.0); Hemoglobin 14.9 GM/DL (14.0-18.0); Immature Granulocytes % 0.5 %; Immature Granulocytes Absolute 0.04 #; Lymphocytes # 0.8 10*3/uL (1.4-4.0); Lymphocytes % 10.1 % (21.2-54.2); Mean Corpuscular HGB Conc 31.8 GM/DL (32-36); Mean Corpuscular Volume 103.8 FL (87-102); Mean Platelet Volume 11.1 FL (9.6-12.0); Monocytes # 0.9 10*3/uL (0.11-0.8); Monocytes % 10.8 % (1.7-12.7); Neutrophils % 78.1 % (38.7-73.9); Platelet Count 333 T/CUMM (130-400); Red Blood Count 4.51 MC/CUMM (3.8-5.5); Red Cell Distribution Width 15.2 % (9.3-17.3); White Blood Count 8.1 T/CUMM (4-12)
[2021-12-24 05:36] LABS: Calcium 8.8 MG/DL (8.5-10.1); Osmolality,Calculated 288.1 MOS/KG (273-304); Potassium 3.9 MMOL/L (3.5-5.1)
[2021-12-24] MEDS: FLUTICASONE/SALMETEROL 250-50 DISKUS 14 DOSE INH SCH ×2 (10:14→21:18)
[2021-12-24] MEDS ORDERED: DIGOXIN 0.5 MG/2 ML AMP IV ONE (10:37)
[2021-12-24] MEDS ORDERED: AMIODARONE 200 MG TABLET PO ONE (10:40)
[2021-12-24] MEDS ORDERED: diphenhydrAMINE CAP 50 MG CAPSULE PO ONE (10:53)
[2021-12-24] MEDS ORDERED: DIAZEPAM 5 MG TABLET PO ONE (10:54)
[2021-12-24] MEDS ORDERED: SODIUM CHLORIDE 0.9% 1,000 ML IV SCH (11:00)
[2021-12-24] MEDS ORDERED: HEPARIN/NACL 0.9% 2 UNITS/ML 3,000 UNIT/1,500 ML BAG IV ONE (12:19)
[2021-12-24] MEDS ORDERED: MIDAZOLAM 2 MG/2 ML VIAL ONE ×2 (12:23→12:53)
[2021-12-24] MEDS ORDERED: fentaNYL 100 MCG/2 ML VIAL ONE (12:23)
[2021-12-24] MEDS ORDERED: HEPARIN 5,000 UNIT/1 ML VIAL ONE ×2 (12:48→12:52)
[2021-12-24] MEDS ORDERED: NITROGLYCERIN DRIP 50 MG/250 ML BOTTLE IV ONE (12:50)
[2021-12-24] MEDS ORDERED: HEPARIN/NACL 0.9% 2 UNITS/ML 1,000 UNIT/500 ML BAG IV ONE (12:51)
[2021-12-24] MEDS ORDERED: CLOPIDOGREL 300 MG TABLET ONE (12:56)
[2021-12-24] MEDS ORDERED: ASPIRIN CHEW 81 MG TABLET PO ONE (12:56)
[2021-12-24] MEDS: ASPIRIN EC 81 MG TABLET PO SCH (13:00)
[2021-12-24] MEDS: ALUM/MAG/SIMETH/LIDO VISC 1:1 30 ML BOTTLE PO SCH (13:00)
[2021-12-24] MEDS: AMIODARONE 200 MG TABLET PO SCH ×2 (13:01→21:23)
[2021-12-24] MEDS: SACUBITRIL/VALSARTAN 49-51 MG TABLET PO SCH ×2 (13:03→21:17)
[2021-12-24] MEDS: DAPAGLIFLOZIN 10 MG TABLET PO SCH (13:04)
[2021-12-24] MEDS: GABAPENTIN 300 MG CAPSULE PO SCH ×3 (13:04→21:18)
[2021-12-24] MEDS: FOLIC ACID 1 MG TABLET PO SCH ×2 (13:04→21:17)
[2021-12-24] MEDS: POLYETHYLENE GLYCOL POWDER 17 GM PACK PO SCH (13:04)
[2021-12-24] MEDS: ASCORBIC ACID 500 MG TABLET PO SCH ×2 (13:05→21:17)
[2021-12-24] MEDS: DOXYCYCLINE HYCLATE 100 MG CAPSULE PO SCH ×2 (13:05→21:17)
[2021-12-24] MEDS: DIGOXIN 0.125 MG TABLET PO SCH (13:05)
[2021-12-24] MEDS: predniSONE 20 MG TABLET PO SCH ×2 (13:05→21:17)
[2021-12-24] MEDS: CYANOCOBALAMIN 500 MCG TABLET PO SCH ×2 (13:05→21:16)
[2021-12-24] MEDS: THIAMINE 100 MG TABLET PO SCH ×2 (13:05→21:17)
[2021-12-24] MEDS: PANTOPRAZOLE 40 MG TABLET PO SCH ×2 (13:05→21:17)
[2021-12-24] MEDS: FUROSEMIDE 40 MG/4 ML VIAL IV SCH (13:26)
[2021-12-24] MEDS: carvediloL 25 MG TABLET PO SCH (13:26)
[2021-12-24] MEDS: FUROSEMIDE 40 MG TABLET PO SCH (16:28)
[2021-12-24] MEDS ORDERED: AMIODARONE 200 MG TABLET PO SCH (21:00)
[2021-12-24] MEDS: ROSUVASTATIN 20 MG TABLET PO SCH (21:16)
[2021-12-24] MEDS: CETIRIZINE 10 MG TABLET PO SCH (21:17)
[2021-12-24] MEDS: carvediloL 12.5 MG TABLET PO SCH (21:18)
[2021-12-25] MEDS: ALBUTEROL/IPRATROPIUM 3 ML NEB RESP TX SCH ×2 (00:46→07:32)
[2021-12-25 05:34] LABS: Basophils % 0.2 % (0.0-0.8); Eosinophils # 0.2 10*3/uL (0.0-0.87); Eosinophils % 1.7 % (0.00-10.9); Hematocrit 46.3 VOL% (42.0-52.0); Immature Granulocytes % 0.3 %; Immature Granulocytes Absolute 0.03 #; Lymphocytes # 1.2 10*3/uL (1.4-4.0); Lymphocytes % 13.4 % (21.2-54.2); Mean Corpuscular HGB Conc 32.4 GM/DL (32-36); Mean Corpuscular Volume 102.9 FL (87-102); Monocytes # 1.4 10*3/uL (0.11-0.8); Monocytes % 15.2 % (1.7-12.7); Neutrophils % 69.2 % (38.7-73.9); Platelet Count 353 T/CUMM (130-400); White Blood Count 9.3 T/CUMM (4-12)
[2021-12-25 05:49] LABS: Calcium 8.9 MG/DL (8.5-10.1); Osmolality,Calculated 281.4 MOS/KG (273-304); Potassium 3.9 MMOL/L (3.5-5.1)
[2021-12-25] MEDS ORDERED: CLOPIDOGREL 75 MG TABLET PO SCH (09:00)
[2021-12-25] MEDS ORDERED: APIXABAN 5 MG TABLET PO SCH (09:00)
[2021-12-25] MEDS: FLUTICASONE/SALMETEROL 250-50 DISKUS 14 DOSE INH SCH (10:07)
[2021-12-25] MEDS: DOXYCYCLINE HYCLATE 100 MG CAPSULE PO SCH (10:07)
[2021-12-25] MEDS: ASCORBIC ACID 500 MG TABLET PO SCH (10:07)
[2021-12-25] MEDS: GABAPENTIN 300 MG CAPSULE PO SCH (10:07)
[2021-12-25] MEDS: AMIODARONE 200 MG TABLET PO SCH (10:08)
[2021-12-25] MEDS: POTASSIUM CHLORIDE 20 MEQ TABLET PO PRN (10:08)
[2021-12-25] MEDS: predniSONE 20 MG TABLET PO SCH (10:08)
[2021-12-25] MEDS: PANTOPRAZOLE 40 MG TABLET PO SCH (10:08)
[2021-12-25] MEDS: THIAMINE 100 MG TABLET PO SCH (10:08)
[2021-12-25] MEDS: ASPIRIN EC 81 MG TABLET PO SCH (10:08)
[2021-12-25] MEDS: CYANOCOBALAMIN 500 MCG TABLET PO SCH (10:08)
[2021-12-25] MEDS: DAPAGLIFLOZIN 10 MG TABLET PO SCH (10:08)
[2021-12-25] MEDS: FOLIC ACID 1 MG TABLET PO SCH (10:08)
[2021-12-25 12:31] VITALS: BP 98/64
[2021-12-25] MEDS: ALUM/MAG/SIMETH/LIDO VISC 1:1 30 ML BOTTLE PO SCH (15:39)
[2021-12-25] MEDS: carvediloL 12.5 MG TABLET PO SCH (15:39)
[2021-12-25] MEDS: FUROSEMIDE 40 MG TABLET PO SCH (15:39)
[2021-12-25] MEDS: SACUBITRIL/VALSARTAN 49-51 MG TABLET PO SCH (15:39)
[2021-12-25] MEDS: POLYETHYLENE GLYCOL POWDER 17 GM PACK PO SCH (15:39)
== END 2021-12-25 13:30 | disposition home health service (06) | DRG 246 ==
LOC: N.ED 11:05 → N.EDINP 15:51 → SUATTDRO 15:51 → N.CC 16:25 → N.TELEN 12-18 14:48
PROVIDERS: ADMIT Internal Medicine; ATTEND Emergency Medicine

== ENCOUNTER 2022-01-10 12:03 | Inpatient (IN) ==
[2022-01-10 12:37] LABS: Basophils # 0.1 10*3/uL (0.0-0.2); Basophils % 0.6 % (0.0-0.8); Eosinophils # 0.5 10*3/uL (0.0-0.87); Eosinophils % 5.4 % (0.00-10.9); Hematocrit 42.8 VOL% (42.0-52.0); Hemoglobin 13.9 GM/DL (14.0-18.0); Immature Granulocytes % 0.9 %; Immature Granulocytes Absolute 0.09 #; Lymphocytes # 1.7 10*3/uL (1.4-4.0); Lymphocytes % 17.1 % (21.2-54.2); Mean Corpuscular HGB Conc 32.5 GM/DL (32-36); Mean Corpuscular Volume 101.4 FL (87-102); Mean Platelet Volume 10.8 FL (9.6-12.0); Monocytes # 1.3 10*3/uL (0.11-0.8); Monocytes % 13.3 % (1.7-12.7); Neutrophils % 62.7 % (38.7-73.9); Platelet Count 224 T/CUMM (130-400); Red Blood Count 4.22 MC/CUMM (3.8-5.5); Red Cell Distribution Width 13.8 % (9.3-17.3); White Blood Count 9.9 T/CUMM (4-12)
[2022-01-10 13:00] LABS: Alanine Aminotransferase 26 U/L (16-61); Albumin 2.8 G/DL (3.4-5.0); Alkaline Phosphatase 100 U/L (45-117); Aspartate Amino Transferase 16 U/L (0-37); Blood Urea Nitrogen 8 MG/DL (7-18); Calcium 9.2 MG/DL (8.5-10.1); Carbon Dioxide 32 MMOL/L (21-32); Chloride 99 MMOL/L (98-107); Glucose 114 MG/DL (74-106); Osmolality,Calculated 275.5 MOS/KG (273-304); Potassium 3.3 MMOL/L (3.5-5.1); Sodium 139 MMOL/L (136-145); Total Protein 7.5 G/DL (6.4-8.2)
[2022-01-10 13:34] LABS: INR 1.1; PT Patient Result 11.8 SECS (10.1-12.1); Partial Thromboplastin Time 34.6 SECS (23.7-32.9)
[2022-01-10] MEDS ORDERED: ONDANSETRON 4 MG/2 ML VIAL ONE (14:44)
[2022-01-10] MEDS ORDERED: MORPHINE 2 MG/1 ML SYRINGE ONE (14:44)
[2022-01-10] MEDS ORDERED: MORPHINE 2 MG/1 ML SYRINGE IV STA ×3 (15:32→16:00)
[2022-01-10] MEDS ORDERED: ONDANSETRON 4 MG/2 ML VIAL IV STA (15:32)
[2022-01-10] MEDS ORDERED: POTASSIUM CHLORIDE 20 MEQ TABLET PO STA (15:58)
[2022-01-10] MEDS ORDERED: DIGOXIN 0.125 MG TABLET PO STA (15:59)
[2022-01-10] MEDS ORDERED: GLUCAGON 1 MG VIAL IM PRN (16:10)
[2022-01-10] MEDS ORDERED: ONDANSETRON 4 MG/2 ML VIAL IV PRN (16:10)
[2022-01-10] MEDS ORDERED: DOCUSATE SODIUM 100 MG CAPSULE PO PRN (16:10)
[2022-01-10] MEDS ORDERED: ACETAMINOPHEN 325 MG TABLET PO PRN (16:10)
[2022-01-10] MEDS ORDERED: guaiFENesin/DM ER 600-30 MG TABLET PO PRN (16:10)
[2022-01-10] MEDS ORDERED: hydrALAZINE 20 MG/1 ML VIAL IV PRN (16:10)
[2022-01-10] MEDS ORDERED: DEXTROSE 10% 250 ML BAG IV PRN (16:10)
[2022-01-10] MEDS ORDERED: ALBUTEROL/IPRATROPIUM 3 ML NEB RESP TX PRN (16:10)
[2022-01-10] MEDS: MORPHINE 2 MG/1 ML SYRINGE IV PRN (20:20)
[2022-01-10] MEDS: FLUTICASONE/SALMETEROL 250-50 DISKUS 14 DOSE INH SCH (20:23)
[2022-01-10] MEDS: GABAPENTIN 300 MG CAPSULE PO SCH (20:24)
[2022-01-10] MEDS: ASCORBIC ACID 500 MG TABLET PO SCH (20:24)
[2022-01-10] MEDS: ROSUVASTATIN 20 MG TABLET PO SCH (20:24)
[2022-01-10] MEDS: APIXABAN 5 MG TABLET PO SCH (20:25)
[2022-01-10] MEDS: carvediloL 12.5 MG TABLET PO SCH (20:27)
[2022-01-10] MEDS ORDERED: SACUBITRIL/VALSARTAN 49-51 MG TABLET PO SCH (21:00)
[2022-01-10] MEDS ORDERED: AMIODARONE 200 MG TABLET PO SCH (21:00)
[2022-01-11] MEDS: MORPHINE 2 MG/1 ML SYRINGE IV PRN ×2 (00:30→04:52)
[2022-01-11 04:50] LABS: Basophils # 0.1 10*3/uL (0.0-0.2); Basophils % 0.7 % (0.0-0.8); Eosinophils # 0.6 10*3/uL (0.0-0.87); Eosinophils % 6.8 % (0.00-10.9); Hematocrit 39.5 VOL% (42.0-52.0); Hemoglobin 12.9 GM/DL (14.0-18.0); Immature Granulocytes % 0.4 %; Immature Granulocytes Absolute 0.03 #; Lymphocytes # 1.7 10*3/uL (1.4-4.0); Lymphocytes % 20.9 % (21.2-54.2); Mean Corpuscular HGB Conc 32.7 GM/DL (32-36); Mean Corpuscular Volume 102.6 FL (87-102); Mean Platelet Volume 11.4 FL (9.6-12.0); Monocytes # 1.2 10*3/uL (0.11-0.8); Monocytes % 15.1 % (1.7-12.7); Neutrophils % 56.1 % (38.7-73.9); Platelet Count 212 T/CUMM (130-400); Red Blood Count 3.85 MC/CUMM (3.8-5.5); Red Cell Distribution Width 13.7 % (9.3-17.3); White Blood Count 8.1 T/CUMM (4-12)
[2022-01-11 05:07] LABS: Osmolality,Calculated 278.4 MOS/KG (273-304); Potassium 3.1 MMOL/L (3.5-5.1)
[2022-01-11] MEDS ORDERED: POTASSIUM CHLORIDE 20 MEQ TABLET PO ONE (07:39)
[2022-01-11] MEDS ORDERED: FUROSEMIDE 40 MG TABLET PO SCH (08:00)
[2022-01-11] MEDS: CLOPIDOGREL 75 MG TABLET PO SCH (10:35)
[2022-01-11] MEDS: AMIODARONE 200 MG TABLET PO SCH ×2 (10:35→21:01)
[2022-01-11] MEDS: FLUTICASONE/SALMETEROL 250-50 DISKUS 14 DOSE INH SCH ×2 (10:35→21:03)
[2022-01-11] MEDS: DAPAGLIFLOZIN 10 MG TABLET PO SCH (10:35)
[2022-01-11] MEDS: ASCORBIC ACID 500 MG TABLET PO SCH ×2 (10:35→21:01)
[2022-01-11] MEDS: ASPIRIN EC 81 MG TABLET PO SCH (10:35)
[2022-01-11] MEDS: APIXABAN 5 MG TABLET PO SCH ×2 (10:35→21:01)
[2022-01-11] MEDS: GABAPENTIN 300 MG CAPSULE PO SCH ×2 (10:35→21:01)
[2022-01-11] MEDS: carvediloL 12.5 MG TABLET PO SCH ×2 (10:35→21:01)
[2022-01-11] MEDS: PANTOPRAZOLE 40 MG TABLET PO SCH (10:35)
[2022-01-11] MEDS ORDERED: LORazepam 1 MG TABLET PO PRN (11:12)
[2022-01-11] MEDS ORDERED: NITROGLYCERIN SL 0.4 MG TABLET SL PRN (14:53)
[2022-01-11] MEDS: DIGOXIN 0.125 MG TABLET PO SCH (16:00)
[2022-01-11] MEDS: FUROSEMIDE 20 MG TABLET PO SCH (16:04)
[2022-01-11] MEDS: ROSUVASTATIN 20 MG TABLET PO SCH (21:01)
[2022-01-12 04:43] LABS: Basophils # 0.1 10*3/uL (0.0-0.2); Basophils % 0.8 % (0.0-0.8); Eosinophils # 0.6 10*3/uL (0.0-0.87); Eosinophils % 8.4 % (0.00-10.9); Hematocrit 39.6 VOL% (42.0-52.0); Hemoglobin 12.7 GM/DL (14.0-18.0); Immature Granulocytes % 0.2 %; Immature Granulocytes Absolute 0.01 #; Lymphocytes # 1.8 10*3/uL (1.4-4.0); Lymphocytes % 27.2 % (21.2-54.2); Mean Corpuscular HGB Conc 32.1 GM/DL (32-36); Mean Corpuscular Volume 104.2 FL (87-102); Mean Platelet Volume 11.1 FL (9.6-12.0); Monocytes # 1.1 10*3/uL (0.11-0.8); Monocytes % 15.9 % (1.7-12.7); Neutrophils % 47.5 % (38.7-73.9); Platelet Count 217 T/CUMM (130-400); Red Cell Distribution Width 13.5 % (9.3-17.3); White Blood Count 6.7 T/CUMM (4-12)
[2022-01-12 05:04] LABS: Eosinophils 6 % (0-10); Lymphocytes 27 % (20-55); Total Cells Counted 100
[2022-01-12 05:05] LABS: Hypochromia Slight; Macrocytosis Slight
[2022-01-12 05:20] LABS: Calcium 9.1 MG/DL (8.5-10.1); Osmolality,Calculated 280.3 MOS/KG (273-304); Potassium 3.5 MMOL/L (3.5-5.1)
[2022-01-12] MEDS ORDERED: MIDAZOLAM 10 MG/2 ML VIAL ONE (07:50)
[2022-01-12] MEDS ORDERED: MEPERIDINE 25 MG/1 ML VIAL ONE (07:50)
[2022-01-12] MEDS ORDERED: MIDAZOLAM 2 MG/2 ML VIAL IV ONE (08:02)
[2022-01-12] MEDS: FOLIC ACID 1 MG TABLET PO SCH (09:54)
[2022-01-12] MEDS: CLOPIDOGREL 75 MG TABLET PO SCH (09:54)
[2022-01-12] MEDS: POTASSIUM CHLORIDE 20 MEQ TABLET PO SCH (09:54)
[2022-01-12] MEDS: ASCORBIC ACID 500 MG TABLET PO SCH ×2 (09:54→21:12)
[2022-01-12] MEDS: MULTIVITAMIN (CENTRUM) TABLET PO SCH (09:54)
[2022-01-12] MEDS: AMIODARONE 200 MG TABLET PO SCH ×3 (09:55→21:12)
[2022-01-12] MEDS: FUROSEMIDE 20 MG TABLET PO SCH ×2 (09:55→15:43)
[2022-01-12] MEDS: THIAMINE 100 MG TABLET PO SCH (09:55)
[2022-01-12] MEDS: ASPIRIN EC 81 MG TABLET PO SCH (09:55)
[2022-01-12] MEDS: carvediloL 12.5 MG TABLET PO SCH ×2 (09:55→21:12)
[2022-01-12] MEDS: GABAPENTIN 300 MG CAPSULE PO SCH ×2 (09:55→21:12)
[2022-01-12] MEDS: PANTOPRAZOLE 40 MG TABLET PO SCH (09:55)
[2022-01-12] MEDS: APIXABAN 5 MG TABLET PO SCH ×2 (09:56→21:12)
[2022-01-12] MEDS: DAPAGLIFLOZIN 10 MG TABLET PO SCH (09:56)
[2022-01-12] MEDS: FLUTICASONE/SALMETEROL 250-50 DISKUS 14 DOSE INH SCH ×2 (09:57→21:13)
[2022-01-12] MEDS: DIGOXIN 0.125 MG TABLET PO SCH (12:26)
[2022-01-12] MEDS: ROSUVASTATIN 20 MG TABLET PO SCH (21:12)
[2022-01-12] MEDS: oxyCODONE/ACETAMINOPHEN 5-325 MG TABLET PO PRN (21:13)
[2022-01-13 05:59] LABS: Basophils # 0.1 10*3/uL (0.0-0.2); Basophils % 0.7 % (0.0-0.8); Eosinophils # 0.6 10*3/uL (0.0-0.87); Eosinophils % 8.2 % (0.00-10.9); Hematocrit 37.6 VOL% (42.0-52.0); Immature Granulocytes % 0.3 %; Immature Granulocytes Absolute 0.02 #; Lymphocytes # 2.1 10*3/uL (1.4-4.0); Lymphocytes % 27.4 % (21.2-54.2); Mean Corpuscular HGB Conc 31.9 GM/DL (32-36); Mean Corpuscular Volume 104.7 FL (87-102); Mean Platelet Volume 11.1 FL (9.6-12.0); Monocytes # 1.1 10*3/uL (0.11-0.8); Monocytes % 13.9 % (1.7-12.7); Neutrophils % 49.5 % (38.7-73.9); Platelet Count 223 T/CUMM (130-400); Red Blood Count 3.59 MC/CUMM (3.8-5.5); Red Cell Distribution Width 13.7 % (9.3-17.3); White Blood Count 7.5 T/CUMM (4-12)
[2022-01-13 06:14] LABS: Osmolality,Calculated 279.3 MOS/KG (273-304); Potassium 3.7 MMOL/L (3.5-5.1)
[2022-01-13] MEDS: AMIODARONE 200 MG TABLET PO SCH ×2 (09:14→20:54)
[2022-01-13] MEDS: ASCORBIC ACID 500 MG TABLET PO SCH ×2 (09:14→20:54)
[2022-01-13] MEDS: POTASSIUM CHLORIDE 20 MEQ TABLET PO SCH (09:14)
[2022-01-13] MEDS: THIAMINE 100 MG TABLET PO SCH (09:14)
[2022-01-13] MEDS: PANTOPRAZOLE 40 MG TABLET PO SCH (09:14)
[2022-01-13] MEDS: GABAPENTIN 300 MG CAPSULE PO SCH ×2 (09:14→20:54)
[2022-01-13] MEDS: MULTIVITAMIN (CENTRUM) TABLET PO SCH (09:15)
[2022-01-13] MEDS: APIXABAN 5 MG TABLET PO SCH ×2 (09:15→20:54)
[2022-01-13] MEDS: FLUTICASONE/SALMETEROL 250-50 DISKUS 14 DOSE INH SCH ×2 (09:15→20:54)
[2022-01-13] MEDS: DAPAGLIFLOZIN 10 MG TABLET PO SCH (09:15)
[2022-01-13] MEDS: ASPIRIN EC 81 MG TABLET PO SCH (09:15)
[2022-01-13] MEDS: FUROSEMIDE 20 MG TABLET PO SCH ×2 (09:15→15:54)
[2022-01-13] MEDS: CLOPIDOGREL 75 MG TABLET PO SCH (09:15)
[2022-01-13] MEDS: carvediloL 12.5 MG TABLET PO SCH ×2 (09:15→20:54)
[2022-01-13] MEDS: FOLIC ACID 1 MG TABLET PO SCH (09:15)
[2022-01-13] MEDS: oxyCODONE/ACETAMINOPHEN 5-325 MG TABLET PO PRN ×2 (09:21→16:04)
[2022-01-13] MEDS: DIGOXIN 0.125 MG TABLET PO SCH (12:49)
[2022-01-13] MEDS: OXACILLIN 2,000 MG in SODIUM CHLORIDE 0.9% 100 ML IV SCH ×2 (15:42→20:59)
[2022-01-13] MEDS: ROSUVASTATIN 20 MG TABLET PO SCH (20:54)
[2022-01-13] MEDS: MORPHINE 2 MG/1 ML SYRINGE IV PRN (20:54)
[2022-01-14] MEDS: OXACILLIN 2,000 MG in SODIUM CHLORIDE 0.9% 100 ML IV SCH ×3 (03:08→15:05)
[2022-01-14] MEDS: MORPHINE 2 MG/1 ML SYRINGE IV PRN ×2 (05:02→09:03)
[2022-01-14 05:21] LABS: Calcium 8.7 MG/DL (8.5-10.1); Potassium 4.2 MMOL/L (3.5-5.1)
[2022-01-14 05:56] LABS: Basophils # 0.1 10*3/uL (0.0-0.2); Basophils % 0.7 % (0.0-0.8); Eosinophils # 0.7 10*3/uL (0.0-0.87); Eosinophils % 9.1 % (0.00-10.9); Hematocrit 36.4 VOL% (42.0-52.0); Hemoglobin 11.4 GM/DL (14.0-18.0); Immature Granulocytes % 0.1 %; Immature Granulocytes Absolute 0.01 #; Lymphocytes # 1.6 10*3/uL (1.4-4.0); Lymphocytes % 21.9 % (21.2-54.2); Mean Corpuscular HGB Conc 31.3 GM/DL (32-36); Mean Corpuscular Volume 105.5 FL (87-102); Mean Platelet Volume 11.3 FL (9.6-12.0); Monocytes # 1.2 10*3/uL (0.11-0.8); Monocytes % 15.5 % (1.7-12.7); Neutrophils % 52.7 % (38.7-73.9); Platelet Count 221 T/CUMM (130-400); Red Blood Count 3.45 MC/CUMM (3.8-5.5); Red Cell Distribution Width 13.9 % (9.3-17.3); White Blood Count 7.4 T/CUMM (4-12)
[2022-01-14] MEDS: FLUTICASONE/SALMETEROL 250-50 DISKUS 14 DOSE INH SCH (09:05)
[2022-01-14] MEDS: MULTIVITAMIN (CENTRUM) TABLET PO SCH (09:06)
[2022-01-14] MEDS: ASCORBIC ACID 500 MG TABLET PO SCH (09:07)
[2022-01-14] MEDS: carvediloL 12.5 MG TABLET PO SCH (09:07)
[2022-01-14] MEDS: FUROSEMIDE 20 MG TABLET PO SCH (09:07)
[2022-01-14] MEDS: CLOPIDOGREL 75 MG TABLET PO SCH (09:07)
[2022-01-14] MEDS: THIAMINE 100 MG TABLET PO SCH (09:07)
[2022-01-14] MEDS: ASPIRIN EC 81 MG TABLET PO SCH (09:07)
[2022-01-14] MEDS: DAPAGLIFLOZIN 10 MG TABLET PO SCH (09:07)
[2022-01-14] MEDS: APIXABAN 5 MG TABLET PO SCH (09:07)
[2022-01-14] MEDS: AMIODARONE 200 MG TABLET PO SCH (09:07)
[2022-01-14] MEDS: POTASSIUM CHLORIDE 20 MEQ TABLET PO SCH (09:07)
[2022-01-14] MEDS: GABAPENTIN 300 MG CAPSULE PO SCH (09:07)
[2022-01-14] MEDS: FOLIC ACID 1 MG TABLET PO SCH (09:08)
[2022-01-14] MEDS: PANTOPRAZOLE 40 MG TABLET PO SCH (09:08)
[2022-01-14 13:01] VITALS: BP 119/68
[2022-01-14] MEDS: DIGOXIN 0.125 MG TABLET PO SCH (15:04)
== END 2022-01-14 15:56 | disposition hospice, home (50) | DRG 552 ==
LOC: N.EDINP 12:03 → N.ED 12:03 → SUATTDRO 16:10 → N.EDINP 18:05 → N.2W 18:18 → SUATTDRO 01-11 09:52 → N.TELES 01-11 18:00
PROVIDERS: ADMIT Internal Medicine; ATTEND Hospitalist